=== PATIENT | male | born 1945 | race Caucasian/White ===

== ENCOUNTER 2020-09-13 23:23 | Emergency (ER) | payer MEDICARE ==
--- NOTE | 2020-09-13 23:26 | ERPHSYRPT ---
- History of Present Illness Time Seen by Provider: 09/13/20 23:26 Source: patient, family Exam Limitations: no limitations Physician History: This is a 74-year-old white male who presents with left flank pain that radiates around his left lower quadrant. Patient has had the symptoms for approximately 4 to 5 days. He has a history of [id number] diabetes, g astroesophageal reflux disease and Parkinson's disease. He has no known history of nephrolithiasis or ureterolithiasis. Patient does take tramadol chronically. He has no chest pain he has no shortness of breath. Has had no fever chills symptoms. Patient denies trauma to back Timing/Duration: day(s), worse Method of Injury: other (No injury) Quality: aching Severity of Pain-Max: moderate Severity of Pain-Current: moderate Modifying Factors: Improves With: movement Associated Symptoms: lower back pain (Left flank), No fever, No chills, No urinary incontinence, No loss of bowel control Previous symptoms: no prior history Allergies/Adverse Reactions: No Known Drug Allergies Allergy (Verified 09/13/20 23:37) Home Medications: Aspirin [Aspirin EC] 81 mg PO DAILY 08/10/15 [History] Carbidopa/Levodopa [Carbidopa-Levodopa 25-100 Tab] 1 each PO QID 08/10/15 [History] Diazepam 5 mg [Valium 5 MG] 5 mg PO BID 08/10/15 [History] Glipizide 5 mg [Glucotrol 5 MG] 5 mg PO BID 08/10/15 [History] Pravastatin Sodium 40 mg PO DAILY 08/10/15 [History] Sitagliptin Phos/Metformin HCl [Janumet Xr 100-1,000 mg Tablet] 1 each PO BID 0 08/10/15 [History] Multivit-Min36/Iron/Folic Acid [Geritol Complete Tablet] 1 each PO DAILY 09/11/15 [History] Omeprazole/Sodium Bicarbonate [Zegerid 20 mg Capsule] 20 each PO DAILY 09/11/15 [History] Tramadol HCl 50 mg [Ultram 50 mg] 1 - 2 tab PO Q6HPRN PRN 09/11/15 [History] Travel Risk - International Travel Have you traveled outside of the country in past 3 weeks: No - Coronavirus Screening Are you exhibiting any of the following symptoms?: No Close contact with a COVID-19 positive Pt in past 14-21 Days: No - Review of Systems Constitutional: No Symptoms Eyes: No Symptoms Ears, Nose, & Throat: No Symptoms Respiratory: No Symptoms Cardiac: No Symptoms Abdominal/Gastrointestinal: No Symptoms Genitourinary Symptoms: Flank Pain (Left) Musculoskeletal: No Symptoms, Back Pain (Left flank) Skin: No Symptoms Neurological: No Symptoms Psychological: No Symptoms Endocrine: No Symptoms Hematologic/Lymphatic: No Symptoms Immunological/Allergic: No Symptoms All Other Systems: Reviewed and Negative - Past Medical History Pertinent Past Medical History: Yes - Past Surgical History Past Surgical History: Yes - Nursing Vital Signs Nursing Vital Signs: Initial Vital Signs Temperature 99.3 F 09/13/20 23:38 Pulse Rate 79 09/13/20 23:38 Respiratory Rate 18 09/13/20 23:38 Blood Pressure 163/103 09/13/20 23:38 O2 Sat by Pulse Oximetry 94 L 09/13/20 23:38 Pain Scale Pain Intensity 3 - Physical Exam General Appearance: mild distress, alert, anxiety Eye Exam: PERRL/EOMI, eyes nml inspection Ears, Nose, Throat Exam: normal ENT inspection, moist mucous membranes Neck Exam: normal inspection, non-tender, supple, full range of motion Respiratory Exam: normal breath sounds, lungs clear, airway intact, No chest tenderness, No respiratory distress Cardiovascular Exam: regular rate/rhythm, normal heart sounds, normal peripheral pulses Gastrointestinal Exam: soft, normal bowel sounds, tenderness (Left lower quadrant) Rectal Exam: not done Back Exam: normal inspection, normal range of motion, CVA tenderness (Left), No vertebral tenderness Extremity Exam: normal inspection, normal range of motion, pelvis stable Neurologic Exam: alert, oriented x 3, cooperative, 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, normal mood/affect, nml cerebellar function, nml station & gait, sensation nml Skin Exam: normal color, warm, dry Lymphatic Exam: No adenopathy SpO2 Interpretation: normal O2 Delivery: Room Air - Course Nursing assessment & vital signs reviewed: Yes Ordered Tests: Active Orders 24 hr Category Date Time Status IV Insertion STAT Care 09/13/20 23:45 Active ABDOMEN AND PELVIS W/0 CONTRAS [CT] Stat Exams 09/14/20 00:15 Taken CULTURE,URINE Stat Lab 09/14/20 00:09 Received Lactic Acid Stat Lab 09/13/20 23:45 Completed UA W/RFX UR CULTURE Stat Lab 09/14/20 00:09 Completed Medication Summary Generic Name Dose Route Start Last Admin Trade Name Keeganq PRN Reason Stop Dose Admin Ceftriaxone Sodium/Dextrose 1 g in 50 mls @ 100 mls/hr 09/14/20 02:30 0 09/14/20 02:33 Rocephin 1 Gm-D5w 50 Ml Bag IV 09/14/20 02:59 100 mls/hr STAT STA 100 mls/hr Administration Ketorolac Tromethamine 30 mg 09/14/20 02:50 Toradol 30 Mg Injection IV 09/14/20 02:51 STAT ONE Discontinued Medications Generic Name Dose Route Start Last Admin Trade Name Keeganq PRN Reason Stop Dose Admin Hydromorphone HCl 1 mg 09/13/20 23:45 09/14/20 00:23 Hydromorphone 1 Mg/Ml Injection IV 09/13/20 23:46 1 mg STAT ONE Administration Hydromorphone HCl Confirm 09/14/20 00:23 Hydromorphone 1 Mg/Ml Injection Administered 09/14/20 00:24 Dose 1 mg .ROUTE .STK-MED ONE Sodium Chloride 1,000 mls @ 999 mls/hr 09/13/20 23:45 09/14/20 02:24 Sodium Chloride 0.9% 1000 Ml IV 09/14/20 00:45 Infused .Q1H1M STA Infusion Sodium Chloride Confirm 09/14/20 00:23 Sodium Chloride 0.9% 1000 Ml Administered 09/14/20 00:24 Dose 1,000 mls @ ud .ROUTE .STK-MED ONE Ceftriaxone Sodium/Dextrose Confirm 09/14/20 02:31 Rocephin 1 Gm-D5w 50 Ml Bag Administered 09/14/20 02:32 Dose 1 g in 50 mls @ ud IV .STK-MED ONE Ondansetron HCl 4 mg 09/13/20 23:45 09/14/20 00:24 Zofran 4 Mg/2 Ml Vial IV 09/13/20 23:46 4 mg STAT ONE Administration Ondansetron HCl Confirm 09/14/20 00:23 Zofran 4 Mg/2 Ml Vial Administered 09/14/20 00:24 Dose 4 mg .ROUTE .STK-MED ONE Lab/Rad Data: Laboratory Result Diagrams 09/13/20 01:04 09/13/20 01:04 Laboratory Results 09/14/20 09/14/20 09/13/20 Range/Units 00:09 00:05 01:04 WBC (4.0-10.5) K/mm3 RBC (4.1-5.6) M/mm3 Hgb (12.5-18.0) gm/dl Hct (42-50) % MCV (78-100) fl MCH (26-32) pg MCHC (32-36) g/dl RDW (11.5-14.0) % Plt Count (150-450) K/mm3 MPV (7.5-11.0) fl Gran % (36.0-66.0) % Eos # (Auto) (0-0.5) Absolute Lymphs (auto) (1.0-4.6) Absolute Monos (auto) (0.0-1.3) Lymphocytes % (24.0-44.0) % Monocytes % (0.0-12.0) % Eosinophils % (0.00-5.0) % Basophils % (0.0-0.4) % Absolute Granulocytes (1.4-6.9) Basophils # (0-0.4) Sodium 142 (137-145) mmol/L Potassium 3.7 (3.5-5.1) mmol/L Chloride 104 (98-107) mmol/L Carbon Dioxide 29 (22-30) mmol/L Anion Gap 12.6 (5-15) MEQ/L BUN 19 (9-20) mg/dL Creatinine 1.08 (0.66-1.25) mg/dL Estimated GFR > 60.0 ML/MIN Glucose 62 L (74-106) mg/dL Lactic Acid 1.3 (0.4-2.0) Calcium 10.5 H (8.4-10.2) mg/dL Total Bilirubin 1.20 (0.2-1.3) mg/dL AST 26 (17-59) U/L ALT < 4 (0-50) U/L Alkaline Phosphatase 64 (38-126) U/L Serum Total Protein 8.1 (6.3-8.2) g/dL Albumin 4.8 (3.5-5.0) g/dL Amylase 42 (30-110) U/L Lipase 43 (23-300) U/L Urine Color ARJUN (YELLOW) Urine Appearance SLIGHTLY CLOUDY (CLEAR) Urine pH 5.0 (5-6) Ur Specific [place] 1.020 (1.005-1.025) Urine Protein 100 (Negative) Urine Ketones NEGATIVE (NEGATIVE) Urine Blood LARGE (0-5) Alexis/ul Urine Nitrite NEGATIVE (NEGATIVE) Urine Bilirubin NEGATIVE (NEGATIVE) Urine Urobilinogen NEGATIVE (0-1) mg/dL Ur Leukocyte Esterase TRACE (NEGATIVE) Urine WBC (Auto) 11-15 (0-5) /HPF Urine RBC (Auto) >101 (0-2) /HPF U Epithel Cells (Auto) RARE (FEW) /HPF Urine Bacteria (Auto) NONE (NEGATIVE) /HPF Granular Casts (Auto) 10-25 (NEGATIVE) /LPF Urine Mucus (Auto) SLIGHT (NEGATIVE) /HPF Urine Culture Reflexed YES (NO) Urine Glucose NEGATIVE (NEGATIVE) mg/dL 09/13/20 Range/Units 01:04 WBC 12.8 H (4.0-10.5) K/mm3 RBC 5.42 (4.1-5.6) M/mm3 Hgb 15.4 (12.5-18.0) gm/dl Hct 46.9 (42-50) % MCV 86.5 (78-100) fl MCH 28.4 (26-32) pg MCHC 32.8 (32-36) g/dl RDW 12.7 (11.5-14.0) % Plt Count 210 (150-450) K/mm3 MPV 9.8 (7.5-11.0) fl Gran % 70.1 H (36.0-66.0) % Eos # (Auto) 0.15 (0-0.5) Absolute Lymphs (auto) 2.37 (1.0-4.6) Absolute Monos (auto) 1.26 (0.0-1.3) Lymphocytes % 18.5 L (24.0-44.0) % Monocytes % 9.9 (0.0-12.0) % Eosinophils % 1.2 (0.00-5.0) % Basophils % 0.3 (0.0-0.4) % Absolute Granulocytes 8.96 H (1.4-6.9) Basophils # 0.04 (0-0.4) Sodium (137-145) mmol/L Potassium (3.5-5.1) mmol/L Chloride (98-107) mmol/L Carbon Dioxide (22-30) mmol/L Anion Gap (5-15) MEQ/L BUN (9-20) mg/dL Creatinine (0.66-1.25) mg/dL Estimated GFR ML/MIN Glucose (74-106) mg/dL Lactic Acid (0.4-2.0) Calcium (8.4-10.2) mg/dL Total Bilirubin (0.2-1.3) mg/dL AST (17-59) U/L ALT (0-50) U/L Alkaline Phosphatase (38-126) U/L Serum Total Protein (6.3-8.2) g/dL Albumin (3.5-5.0) g/dL Amylase (30-110) U/L Lipase (23-300) U/L Urine Color (YELLOW) Urine Appearance (CLEAR) Urine pH (5-6) Ur Specific [place] (1.005-1.025) Urine Protein (Negative) Urine Ketones (NEGATIVE) Urine Blood (0-5) Alexis/ul Urine Nitrite (NEGATIVE) Urine Bilirubin (NEGATIVE) Urine Urobilinogen (0-1) mg/dL Ur Leukocyte Esterase (NEGATIVE) Urine WBC (Auto) (0-5) /HPF Urine RBC (Auto) (0-2) /HPF U Epithel Cells (Auto) (FEW) /HPF Urine Bacteria (Auto) (NEGATIVE) /HPF Granular Casts (Auto) (NEGATIVE) /LPF Urine Mucus (Auto) (NEGATIVE) /HPF Urine Culture Reflexed (NO) Urine Glucose (NEGATIVE) mg/dL - Progress Progress: improved, pain not gone completely, re-examined Progress Note: 09/14/20 02:51 CAT scan of the abdomen and pelvis without contrast shows mild left hydronephrosis and proximal hydroureter secondary to a 4 mm left mid ureteral calculus Counseled pt/family regarding: lab results, diagnosis, need for follow-up, rad results - Departure Departure Disposition: Home Clinical Impression: Left ureteral calculus, UTI (urinary tract infection) Condition: Stable Critical Care Time: No Referrals: COREY,NANCY, MD [Primary Care Provider] - Additional Instructions: Drink plenty of fluids. Take your medication as prescribed. Add ibuprofen 600 mg orally 3 times a day with food for the next 5 days. Prescriptions: Hydrocodone/APAP 5/325 [[place] 5/325 mg] 1 each PO Q8H PRN PRN #10 tablet MDD 3 PRN Reason: Pain Ciprofloxacin [Cipro 500 MG] 500 mg PO BID #14 tablet
[2020-09-13] MEDS ORDERED: Zofran 4 MG/2 ML VIAL IV ONE (23:45)
[2020-09-13] MEDS ORDERED: Hydromorphone 1 mg/ml Injection IV ONE (23:45)
[2020-09-13] MEDS ORDERED: Sodium Chloride 0.9% 1000 ML 1,000 ML IV STA (23:45)
[2020-09-14] MEDS ORDERED: Sodium Chloride 0.9% 1000 ML 1,000 ML ONE (00:23)
[2020-09-14] MEDS ORDERED: Zofran 4 MG/2 ML VIAL ONE (00:23)
[2020-09-14] MEDS ORDERED: Hydromorphone 1 mg/ml Injection ONE (00:23)
[2020-09-14 01:04] LABS: Absolute Neutrophil Ct (ANC) 8.96 (1.4-6.9); BASOPHIL % 0.3 % (0.0-0.4); Basophil (Absolute #) 0.04 (0-0.4); Eosinophil % 1.2 % (0.00-5.0); Eosinophil (Absolute #) 0.15 (0-0.5); Hematocrit 46.9 % (42-50); Hemoglobin 15.4 gm/dl (12.5-18.0); Lymphocyte (Absolute #) 2.37 (1.0-4.6); Lymphocytes % 18.5 % (24.0-44.0); Mean Cell Volume 86.5 fl (78-100); Mean Corpuscular Hemoglobin 28.4 pg (26-32); Mean Corpuscular Hgb Concent. 32.8 g/dl (32-36); Mean Platelet Volume 9.8 fl (7.5-11.0); Monocyte (Absolute #) 1.26 (0.0-1.3); Monocytes % 9.9 % (0.0-12.0); Neutrophil % 70.1 % (36.0-66.0); Platelet Count 210 K/mm3 (150-450); Red Blood Count 5.42 M/mm3 (4.1-5.6); Red Cell Distribution Width 12.7 % (11.5-14.0); White Blood Count 12.8 K/mm3 (4.0-10.5)
[2020-09-14 01:11] LABS: Appearance SLIGHTLY CLOUDY (CLEAR); Bilirubin NEGATIVE (NEGATIVE); Blood LARGE Ery/ul (0-5); Epithelial Cells RARE /HPF (FEW); Glucose NEGATIVE (NEGATIVE); Ketones NEGATIVE (NEGATIVE); Leukocyte Esterase TRACE (NEGATIVE); Mucus SLIGHT /HPF (NEGATIVE); Nitrite NEGATIVE (NEGATIVE); Protein,Urine Dip 100 (Negative); Urobilinogen NEGATIVE mg/dL (0-1)
[2020-09-14 01:13] LABS: RBC >101 /HPF (0-2)
[2020-09-14 01:14] LABS: ALBUMIN 4.8 g/dL (3.5-5.0); ALKALINE PHOSPHATASE 64 U/L (38-126); AMYLASE 42 U/L (30-110); ANION GAP 12.6 MEQ/L (5-15); BLOOD UREA NITROGEN 19 mg/dL (9-20); CHLORIDE 104 mmol/L (98-107); Calcium 10.5 mg/dL (8.4-10.2); Carbon Dioxide 29 mmol/L (22-30); Creatinine 1 1.08 mg/dL (0.66-1.25); EST GLOMERULAR FILTRATION RATE > 60.0 ML/MIN; Glucose 62 mg/dL (74-106); LIPASE 43 U/L (23-300); Potassium 3.7 mmol/L (3.5-5.1); SGOT/AST 26 U/L (17-59); SGPT/ALT < 4 U/L (0-50); SODIUM 142 mmol/L (137-145); Total Protein 8.1 g/dL (6.3-8.2)
[2020-09-14 02:17] VITALS: PULSE 68
[2020-09-14] MEDS ORDERED: ROCEPHIN 1 Gm-D5w 50 ml Bag** 1 G/50 ML IVPB IV STA (02:30)
[2020-09-14] MEDS ORDERED: ROCEPHIN 1 Gm-D5w 50 ml Bag** 1 G/50 ML IVPB IV ONE (02:31)
[2020-09-14] MEDS ORDERED: TORAdol 30 mg Injection IV ONE (02:50)
[2020-09-14] MEDS ORDERED: NORCO 5/325 MG PO ONE (03:00)
[2020-09-14] MEDS ORDERED: TORAdol 30 mg Injection ONE (03:04)
[2020-09-14] MEDS ORDERED: NORCO 5/325 MG ONE (03:10)
[2020-09-14 03:15] VITALS: BP 130/69; O2SAT 94
--- NOTE | 2020-09-14 09:24 | XRAY ---
Indication: Left flank pain 3 weeks. Multiple contiguous axial images obtained through the abdomen and pelvis without contrast using renal stone protocol. Comparison: None Lung bases demonstrates minimal fibrosis/scarring and tiny left lower lobe calcified granuloma. No infiltrate or effusion. Heart not enlarged. Noncontrasted stomach and bowel loops nonobstructed with normal air-filled appendix. Incidental 2 cm duodenal diverticulum. No free fluid/air. There is a 4 mm left mid ureteral calculus, approximately L5-S1 level. Proximal left ureter is slightly prominent along with mild hydronephrosis and renal edema favors partial obstructive uropathy. Additional 6-7 mm left renal calculus. Right kidney appears mildly atrophic. There is a 1.9 cm right adrenal adenoma. Gallbladder moderately distended without gallstones. A few tiny splenic calcified granulomas. Remaining liver, gallbladder, pancreas, spleen, adrenal glands, kidneys, ureters, and bladder are unremarkable for noncontrast exam. Moderate scattered aortoiliac calcifications without AAA. Osseous structures demonstrates mild osteopenia and mild/moderate degenerative changes throughout the thoracolumbar spine. Impression: 1. 4 mm left mid ureteral calculus producing partial obstruction. Additional left renal micro-calculus. 2. Distended gallbladder without gallstones. Gallbladder sonogram may yield further information if clinically warranted. 3. Incidental duodenal diverticulum, right renal atrophy, right adrenal adenoma, chronic bony findings, and old granulomatous disease. Comment: Preliminary interpretation was made by [facility]. No critical discrepancy.
== END 2020-09-14 03:21 | disposition home or self-care (01) ==
LOC: ED 23:23
DX: N13.2 Hydronephrosis with renal and ureteral calculous obstruction (principal); N39.0 Urinary tract infection, site not specified
CPT/HCPCS: 36000; 36415; 74176; 80053; 81001; 82150; 83605; 83690; 85025; 87077; 87086; 87186; 96360; 96365; 96372; 96374; 96375; 99284; J0696; J1170; J1885; J2405; A9270-GY